=== PATIENT | female | born 1980 | race Caucasian/White ===

== ENCOUNTER → 2018-03-31 | Outpatient (CLI) | payer BC ==
[2018-03-31 15:56] LABS: Basophils % (A) 0 %; Eosinophils # (A) 0.1 k/uL (0-0.7); Eosinophils % (A) 1 %; HCT 42.7 % (34.0-46.0); Lymphocytes # (A) 2.1 k/uL (1.0-4.8); Lymphocytes % (A) 28 %; MCH 30.6 pg (25.0-35.0); MCHC 32.8 g/dL (31.0-37.0); MCV 93.4 fL (80.0-100.0); Mean Platelet Volume 8.7; Monocytes # (A) 0.5 k/uL (0-1.0); Monocytes % (A) 6 %; Neutrophils # (A) 4.6 k/uL (1.3-7.7); Neutrophils % (A) 63 %; Platelet Count 237 k/uL (150-450); RBC 4.57 m/uL (3.80-5.40); RDW 12.3 % (11.5-15.5); WBC 7.4 k/uL (3.8-10.6)
== END | disposition home or self-care (01) ==
LOC: LABPAT 15:15
PROVIDERS: ATTEND Obstetrics & Gynecology
DX: Z01.812 Encounter for preprocedural laboratory examination (principal); N84.0 Polyp of corpus uteri; N93.8 Other specified abnormal uterine and vaginal bleeding
CPT/HCPCS: 36415; 85025

== ENCOUNTER 2018-04-06 09:48 | Day surgery (SDC) | payer BC ==
[~2018-04-06 09:48] MED LIST: DEXAMETHASONE SOD PHOSPHATE 10 MG/ML 1 ML VIAL IV ONE; HYDROmorphone 0.5 MG/0.5 ML SYRINGE IVP PRN; LACTATED RINGERS 1,000 ML IV SCH; ONDANSETRON 4 MG/2 ML VIAL IVP ONE; Pre Op ABX Message 1 EACH MISC MISCELLANE ONE
--- NOTE | 2018-04-06 10:29 | P.HPOB ---
History of Present Illness H&P Date: 04/06/18 Chief Complaint: Irregular periods This is a 37-year-old 3 para 3 woman with worsening history of prolonged and irregular periods. She was found on pelvic ultrasound to have a 1.1 x 0.5 x 0.5 cm endometrial polyp. Normal adnexa. She is scheduled to undergo diagnostic hysteroscopy with D&C and polypectomy. Review of Systems Constitutional: Reports fatigue, Denies chills, Denies fever Cardiovascular: Denies chest pain, Denies shortness of breath Respiratory: Denies cough Gastrointestinal: Denies abdominal pain, Denies BRBPR Genitourinary: Reports abnormal vaginal bleeding Integumentary: Denies rash Neurological: Reports headaches Psychiatric: Denies anxiety, Denies depression Past Medical History Additional Past Medical History / Comment(s): CURRENT: IRREGULAR PERIODS AND LASTING UP TO 3 WEEKS. MIGRAINE History of Any Multi-Drug Resistant Organisms: None Reported Past Surgical History: No Surgical Hx Reported Additional Past Surgical History / Comment(s): HER FIRST SURGERY Past Anesthesia/Blood Transfusion Reactions: Motion Sickness Additional Past Anesthesia/Blood Transfusion Reaction / Comment(s): NEVER HAD ANESTHESIA. Past Psychological History: No Psychological Hx Reported Smoking Status: Never smoker Past Alcohol Use History: Occasional Past Drug Use History: None Reported - Past Family History Mother Family Medical History: No Reported History Medications and Allergies Home Medications Medication Instructions Recorded Confirmed Type ALPRAZolam [Xanax] 0.25 mg PO DAILY PRN 04/02/18 04/02/18 History Ibuprofen 200 - 400 mg PO Q6H PRN 04/02/18 04/02/18 History Rizatriptan Benzoate [Maxalt] 20 mg SL DAILY 04/02/18 04/02/18 History Allergies Allergy/AdvReac Type Severity Reaction Status Date / Time fentanyl AdvReac Nausea & Verified 04/02/18 09:35 Vomiting Exam This is a pleasant female in no apparent distress. HEENT exam is unremarkable with no palpable lymphadenopathy or thyromegaly. Lungs are clear to auscultation bilaterally and the heart is regular rate and rhythm. The abdomen is slim soft and nontender with no rebound no guarding and no flank pain. On the skin is free of any gross lesions or rashes. On previously performed pelvic examination she's demonstrated normal female external genitalia. Uterus is small, freely mobile and in the midline. No adnexal abnormalities palpable. Neurologic exam is grossly intact. Mood and affect are normal. Assessment and Plan (1) Endometrial polyp Current Visit: Yes Status: Acute Code(s): N84.0 - POLYP OF CORPUS UTERI SNOMED Code(s): 54017469 (2) Dysfunctional uterine bleeding Current Visit: Yes Status: Acute Code(s): N93.8 - OTHER SPECIFIED ABNORMAL UTERINE AND VAGINAL BLEEDING SNOMED Code(s): 74467524 Plan: This is a 37-year-old 3 para 3 woman with dysfunctional uterine bleeding , irregular menses and findings of endometrial polyp on pelvic ultrasound. She is scheduled undergo diagnostic hysteroscopy with D&C and polypectomy. Risks of this procedure have been reviewed in detail with the patient in the office setting and include bleeding, infection, transfusion, injury to the cervix or uterus including uterine perforation. The with uterine perforation the possibility of damage to internal on pelvic or abdominal structures. The patient understands these risks and agrees to proceed.
[2018-04-06] MEDS ORDERED: MIDAZOLAM 2 MG/2 ML VIAL IVP ONE (11:17)
[2018-04-06] MEDS ORDERED: fentaNYL (PF) 50 MCG/ML 2 ML AMP ONE (12:53)
[2018-04-06] MEDS ORDERED: MIDAZOLAM 2 MG/2 ML VIAL ONE (12:53)
[2018-04-06] MEDS ORDERED: PROPOFOL 10 MG/ML 20 ML VIAL IV ONE (12:53)
[2018-04-06] MEDS ORDERED: LIDOCAINE 1% INJ 10MG/ML (20 ML MDV) ONE (12:53)
[2018-04-06] MEDS ORDERED: KETOROLAC 30 MG/ML 1 ML VIAL ONE (12:53)
[2018-04-06] MEDS ORDERED: LIDOCAINE 1%-EPI 1:100,000 20 ML VIAL SQ ONE (13:06)
--- NOTE | 2018-04-06 13:18 | P.OP ---
Date of Procedure: 04/06/18 Preoperative Diagnosis: Dysfunctional uterine bleeding Endometrial polyp Postoperative Diagnosis: Same Procedure(s) Performed: Diagnostic hysteroscopy, dilation and curettage, polypectomy Anesthesia: MAC Surgeon: Claritza Mock Estimated Blood Loss (ml): 10 IV fluids (ml): 200 Urine output (ml): 200 Pathology: other (Endometrial curettings and polyp) Condition: stable Disposition: PACU Operative Findings: Fluffy endometrium with intrauterine structures consistent with 2 or 3 endometrial polyps emanating from the posterior fundal region. Description of Procedure: After the patient and her were met in the preoperative holding area and all questions were answered she was taken to the operating room where anesthetic was administered without incident. She was then positioned, prepped and draped in the dorsal lithotomy position. Bladder was drained for approximately 200 mL of clear urine. Speculum was placed in the vagina and the cervix was grasped anteriorly with a single-tooth tenaculum. Paracervical block was placed with lidocaine plus epinephrine. The cervix was sounded to 8.5 cm. Cervix is patulous and there is some descensus. Hegar dilators to used to sequentially dilate the cervix to allow for passage of the diagnostic hysteroscope. The hysteroscope was introduced and the above findings were noted. Hysteroscope was removed and the cervix was further dilated to allow for passage of the small sharp banjo curet. The stone polyp forceps were introduced first and tissue consistent with polyp was removed. Curet was then introduced and the uterine cavity was circumferentially curettaged with a large amount of tissue obtained. Hysteroscope was reintroduced and removal of polyps was confirmed. Pathology specimen was sent. Instrument was removed from the cervix and the it was inspected. Hemostasis was noted. Speculum was removed from the vagina. All counts reported to me as correct. Patient was awoken and transported to recovery area in good condition.
[2018-04-06 13:39] VITALS: TEMP 98.4
[2018-04-06 14:58] VITALS: RESP 18
[2018-04-06 15:53] VITALS: BP 117/67; PULSE 62
== END 2018-04-06 15:54 | disposition home or self-care (01) ==
LOC: OR 09:48
PROVIDERS: ATTEND Obstetrics & Gynecology
DX: N84.0 Polyp of corpus uteri (principal); F39 Unspecified mood [affective] disorder; G43.909 Migraine, unspecified, not intractable, without status migrainosus; Z79.899 Other long term (current) drug therapy
CPT/HCPCS: 81025; 88305; 58558; J2250; J1100; J2405; J2001; J3010; J1885; J2704

== ENCOUNTER → 2018-12-07 | Outpatient (CLI) | payer BC ==
--- NOTE | 2018-12-08 07:54 | MM ---
Reason for exam: screening (asymptomatic). Baseline mammogram. History: Family history of breast cancer in maternal grandmother at age 60. Taking progesterone for 3 months. Physical Findings: Nurse did not find any significant physical abnormalities on exam. MG 3D Screening Mammo W/Cad Bilateral CC and MLO view(s) were taken. The breast tissue is heterogeneously dense. This may lower the sensitivity of mammography. Grouped calcifications approximately 10 o'clock right breast. Anterior upper inner quadrant nodular focal asymmetry left breast measures 4mm. Some accessory breast tissue posterior upper outer quadrant on the left. These results were verbally communicated with the patient and result sheet given to the patient on 12/07/18. ASSESSMENT: Incomplete: need additional imaging evaluation, BI-RAD 0 RECOMMENDATION: Special view mammogram of both breasts. (right mag views, left lateral view)
--- NOTE | 2018-12-08 07:56 | MM ---
Reason for exam: additional evaluation requested from abnormal screening. History: Family history of breast cancer in maternal grandmother at age 60. Taking progesterone for 3 months. Physical Findings: Breast exam preformed at baseline screening. MG 3D Work Up W/Cad SHERIDAN Bilateral LM view(s) were taken. CC with magnification and ML with magnification view(s) were taken of the right breast. The breast tissue is heterogeneously dense. This may lower the sensitivity of mammography. Right upper outer quadrant grouped microcalcifications are indeterminate, biopsy recommended. Left 4mm nodularity at 9-10 o'clock. These results were verbally communicated with the patient and result sheet given to the patient on 12/07/18. ASSESSMENT: Incomplete: need additional imaging evaluation, BI-RAD 0 RECOMMENDATION: Ultrasound of the left breast.
--- NOTE | 2018-12-08 07:59 | USB ---
Reason for exam: additional evaluation requested from abnormal screening. History: Family history of breast cancer in maternal grandmother at age 60. Taking progesterone for 3 months. US Breast Workup Limited LT Left limited breast ultrasound including focal area of concern, retroareolar and axilla demonstrates a 8 x 4 x 5mm cystic cluster at 9 o'clock, corresponds well to the mammographic finding, benign and a 6 x 3 x 5mm cystic lesion at 11 o'clock. These results were verbally communicated with the patient and result sheet given to the patient on 12/07/18. ASSESSMENT: Suspicious, BI-RAD 4 RECOMMENDATION: Surgical consultation. (right breast) Stereotactic core biopsy. (right breast calcifications) Called Dr. Mock with mammographic findings and has scheduled an appointment for the patient for 12/14/18 at 4:[address] Christina. PRELIMINARY REPORT CALLED AND FAXED TO DR. CHRISTINA ON 12/08/18.
== END | disposition home or self-care (01) ==
LOC: RADMAMWWP 13:57
PROVIDERS: ATTEND Obstetrics & Gynecology
DX: Z12.31 Encounter for screening mammogram for malignant neoplasm of breast (principal); R92.8 Other abnormal and inconclusive findings on diagnostic imaging of breast
CPT/HCPCS: 77062; 77063; 77066; 77067

== ENCOUNTER → 2018-12-24 | Day surgery (SDC) | payer BC ==
[2018-12-24 07:20] VITALS: RESP 16
[2018-12-24 09:38] VITALS: BP 115/72; PULSE 77; TEMP 98
--- NOTE | 2018-12-24 09:50 | MM ---
EXAMINATION TYPE: MG stereo VAD BX RT DATE OF EXAM: 12/24/2018 COMPARISON: 12/07/2018 CLINICAL HISTORY: Right breast indeterminate calcifications for which stereotactic guided biopsy was recommended. TECHNIQUE: Stereotactic guided core biopsy of right breast. FINDINGS: The procedure of stereotactic guided core biopsy was explained to the patient. Benefits, alternatives, and risks were discussed. An informed consent was then obtained. Preprocedural timeout was performed. The [facility] pathway for biopsy was chosen. Shortness pathway was lateral medial approach. 10 cc of lidocaine without epinephrine was utilized to anesthetize the skin and subcutaneous tissues. The biopsy needle was advanced to the appropriate depth after localization. Prefire images confirmed appropriate needle placement. 5 cc of lidocaine with epinephrine was utilized to anesthetize the subcutaneous soft tissues at the site of biopsy. A vacuum assisted biopsy gun was used to obtain 11 core samples. The patient tolerated the procedure well without any immediate complication. The patient was kept in the radiology department for short stay after the procedure and then discharged home in stable condition. Targeted calcifications are identified in specimen mammogram. Post biopsy mammogram shows the Trimark biopsy marker to appear in satisfactory position relative to the targeted area of concern on the preprocedure images. IMPRESSION: SUCCESSFUL, UNCOMPLICATED STEREOTACTIC GUIDED CORE BIOPSY OF THE 5 MM GROUP OF CALCIFICATIONS IN THE RIGHT BREAST, FULL PATHOLOGY RESULTS TO FOLLOW. Pathology Results: Benign RIGHT BREAST, STEREOTATIC CORE BIOPSY: Fibroadenoma. Background fibrocystic changes with scattered microcalcifications. Recommendation Follow up mammogram of the right breast in 6 months. BRIAN
== END | disposition home or self-care (01) ==
LOC: RADMAMWWP 06:57
PROVIDERS: ATTEND Student in an Organized Health Care Education/Training Program
DX: D24.1 Benign neoplasm of right breast (principal)
CPT/HCPCS: 88305

== ENCOUNTER → 2019-10-27 | Outpatient (CLI) | payer BC ==
--- NOTE | 2019-10-27 15:04 | MM ---
Reason for exam: follow-up at short interval from prior study. Last mammogram was performed 11 months ago. History: Family history of breast cancer in maternal grandmother at age 60. Benign MG stereo VAD BX RT of the right breast, December 24, 2018. Took hormonal contraceptives for 15 years. Taking progesterone for 1 year. Physical Findings: Nurse did not find any significant physical abnormalities on exam. MG 3D Diag Mammo W/Cad RT CC and MLO view(s) were taken of the right breast. Prior study comparison: December 07, 2018, bilateral MG 3d work up w/cad SHERIDAN. December 07, 2018, bilateral MG 3d screening mammo w/cad. The breast tissue is extremely dense which could obscure a lesion on mammography. Focal asymmetry inferior right MLO view. These results were verbally communicated with the patient and result sheet given to the patient on 10/27/19. ASSESSMENT: Probably benign, BI-RAD 3 RECOMMENDATION: Return to routine screening mammogram schedule for both breasts. Back on schedule for November 2019.
== END | disposition home or self-care (01) ==
LOC: RADMAMWWP 14:12
PROVIDERS: ATTEND Student in an Organized Health Care Education/Training Program
DX: R92.8 Other abnormal and inconclusive findings on diagnostic imaging of breast (principal)
CPT/HCPCS: 77061; 77065

== ENCOUNTER → 2020-04-21 | Outpatient (CLI) | payer BC ==
--- NOTE | 2020-04-25 08:32 | MM ---
Reason for exam: screening (asymptomatic). Last mammogram was performed 6 months ago. History: Family history of breast cancer in maternal grandmother at age 60. Benign MG stereo VAD BX RT of the right breast, December 24, 2018. Took hormonal contraceptives for 15 years. Taking progesterone for 1 year. Physical Findings: A clinical breast exam by your physician is recommended on an annual basis and results should be correlated with mammographic findings. MG 3D Screening Mammo W/Cad Bilateral CC and MLO view(s) were taken. Prior study comparison: October 27, 2019, right breast MG 3d diag mammo w/cad RT. December 07, 2018, bilateral MG 3d work up w/cad SHERIDAN. The breast tissue is heterogeneously dense. This may lower the sensitivity of mammography. No significant changes when compared with prior studies. ASSESSMENT: Benign, BI-RAD 2 RECOMMENDATION: Routine screening mammogram of both breasts in 1 year.
== END | disposition home or self-care (01) ==
LOC: RADMAMWWP 11:09
PROVIDERS: ATTEND Student in an Organized Health Care Education/Training Program
DX: Z12.31 Encounter for screening mammogram for malignant neoplasm of breast (principal)
CPT/HCPCS: 77063; 77067

== ENCOUNTER → 2021-09-21 | Outpatient (CLI) | payer BC ==
--- NOTE | 2021-09-24 12:27 | MM ---
Reason for exam: screening (asymptomatic). Last mammogram was performed 1 year and 5 months ago. History: Family history of breast cancer in mother at age 66 and breast cancer in maternal grandmother at age 60. Benign MG stereo VAD BX RT of the right breast, December 24, 2018. Took hormonal contraceptives for 15 years. Taking progesterone for 1 year. Physical Findings: A clinical breast exam by your physician is recommended on an annual basis and results should be correlated with mammographic findings. MG 3D Screening Mammo W/Cad Bilateral CC and MLO view(s) were taken. Prior study comparison: April 21, 2020, bilateral MG 3d screening mammo w/cad. October 27, 2019, right breast MG 3d diag mammo w/cad RT. The breast tissue is heterogeneously dense. This may lower the sensitivity of mammography. There are benign appearing round calcifications bilaterally. Previous mammotome biopsy in the right breast. There is no discrete abnormality. ASSESSMENT: Benign, BI-RAD 2 RECOMMENDATION: Routine screening mammogram of both breasts in 1 year.
== END | disposition home or self-care (01) ==
LOC: RADMAMWWP 13:08
PROVIDERS: ATTEND Student in an Organized Health Care Education/Training Program
DX: Z12.31 Encounter for screening mammogram for malignant neoplasm of breast (principal); Z80.3 Family history of malignant neoplasm of breast
CPT/HCPCS: 77063; 77067

== ENCOUNTER → 2022-11-14 | Outpatient (CLI) | payer BC ==
--- NOTE | 2022-11-15 09:44 | MM ---
Reason for Exam: Screening (asymptomatic). Last mammogram was performed 1 year(s) and 1 month(s) ago. Patient History: Menarche at age 12. First Full-Term at age 24. Patient has history of breast feeding. Patient used Progesterone for 1 year. Patient used Hormonal Contraceptives for 15 years. 12/24/2018, Benign Core Biopsy on the right side. Maternal grandmother had breast cancer, age 60. Mother had breast cancer, age 66. Last menstrual period: 11/13/2022 Risk Values: Chelsy 5 year model risk: 2.2%. NCI Lifetime model risk: 19.9%. Prior Study Comparison: 10/27/2019 Right Diagnostic Mammogram, [facility]. 04/21/2020 Bilateral Screening Mammogram, [facility]. 09/21/2021 Bilateral Screening Mammogram, [facility]. Tissue Density: The breast tissue is extremely dense which could obscure a lesion on mammography. Findings: Analyzed By CAD. Pattern appears symmetrical and stable. 8 core marker is within right breast. Couple of rounded densities are in the outer right breast on craniocaudal projection. These are approximately 0.5 cm in size located 7 cm from nipple lower-outer quadrant. Additional workup with ultrasound is recommended. Overall Assessment: Incomplete: need additional imaging evaluation, BI-RAD 0 Management: Diagnostic Mammogram of the right breast. A negative mammogram report should not preclude additional follow up of suspicious palpable abnormalities. Patient should continue monthly self breast exam. A clinical breast exam by your physician is recommended on an annual basis and results should be correlated with mammographic findings. Electronically signed and approved by: Daren Zavala D.O. Radiologis
== END | disposition home or self-care (01) ==
LOC: RADMAMWWP 16:23
PROVIDERS: ATTEND Obstetrics & Gynecology
DX: Z12.31 Encounter for screening mammogram for malignant neoplasm of breast (principal); Z80.3 Family history of malignant neoplasm of breast; Z98.890 Other specified postprocedural states
CPT/HCPCS: 77063; 77067

== ENCOUNTER → 2022-11-21 | Outpatient (CLI) | payer BC ==
--- NOTE | 2022-11-21 15:28 | MM ---
Reason for Exam: Additional evaluation requested from abnormal screening. Last screening mammogram was performed less than 1 month ago. Patient History: Menarche at age 12. First Full-Term at age 24. Patient has history of breast feeding. Patient used Progesterone for 1 year. Patient used Hormonal Contraceptives for 15 years. 12/24/2018, Benign Core Biopsy on the right side. Maternal grandmother had breast cancer, age 60. Mother had breast cancer, age 66. Last menstrual period: 11/18/2022 Risk Values: Chelsy 5 year model risk: 2.2%. NCI Lifetime model risk: 19.9%. Prior Study Comparison: 04/21/2020 Bilateral Screening Mammogram, [facility]. 09/21/2021 Bilateral Screening Mammogram, [facility]. 11/14/2022 Bilateral MG 3D screening mammo w/cad, [facility]. Tissue Density: Right: The breast tissue is heterogeneously dense. This may lower the sensitivity of mammography. Findings: Analyzed By CAD. Area persists measuring 10 mm 6.5 cm from nipple in the upper outer quadrant. Depth. Overall Assessment: Incomplete: need additional imaging evaluation, BI-RAD 0 Management: Diagnostic Breast Ultrasound of the right breast. For complete evaluation dedicated ultrasound of the right upper outer quadrant approximately 6.5 cm from nipple is recommended. A clinical breast exam by your physician is recommended on an annual basis and results should be correlated with mammographic findings. This exam should not preclude additional follow-up of suspicious palpable abnormalities. Results were given to the patient verbally at the time of exam. Electronically signed and approved by: Jann Johnson DO
--- NOTE | 2022-11-21 15:52 | USB ---
Reason for Exam: Additional evaluation requested from abnormal screening. Patient History: Menarche at age 12. First Full-Term at age 24. Patient has history of breast feeding. Patient used Progesterone for 1 year. Patient used Hormonal Contraceptives for 15 years. 12/24/2018, Benign Core Biopsy on the right side. Maternal grandmother had breast cancer, age 60. Mother had breast cancer, age 66. Risk Values: Chelsy 5 year model risk: 2.2%. NCI Lifetime model risk: 19.9%. Technique: Method: Targeted. Prior Study Comparison: 04/21/2020 Bilateral Screening Mammogram, [facility]. 09/21/2021 Bilateral Screening Mammogram, [facility]. 11/14/2022 Bilateral MG 3D screening mammo w/cad, [facility]. Findings: The upper outer quadrant of the right breast, the axilla of the right breast and the retroareolar of the right breast were scanned. Targeted ultrasound near 9:00 position 7 cm distance from nipple shows an oval elongated avascular structure or hypoechoic to anechoic area without posterior acoustic features. It measures roughly 10 to 11 mm long axis by 3 mm and runs parallel to the skin line. No additional suspicious lesions are seen. Area of uncertain etiology, dilated duct would be considered closer to the nipple. Mammogram views suggest prominent lymph node. Overall Assessment: Probably benign, BI-RAD 3 Management: Diagnostic Mammogram of the right breast in 6 months. Diagnostic Breast Ultrasound of the right breast in 6 months. A clinical breast exam by your physician is recommended on an annual basis and results should be correlated with mammographic findings. This exam should not preclude additional follow-up of suspicious palpable abnormalities. Results were given to the patient verbally at the time of exam. Electronically signed and approved by: Memo Nieves M.D.
== END | disposition home or self-care (01) ==
LOC: RADMAMWWP 14:52
PROVIDERS: ATTEND Obstetrics & Gynecology
DX: R92.8 Other abnormal and inconclusive findings on diagnostic imaging of breast (principal); Z80.3 Family history of malignant neoplasm of breast
CPT/HCPCS: 77061; 77065

== ENCOUNTER → 2023-05-14 | Outpatient (CLI) | payer BC ==
--- NOTE | 2023-05-14 09:17 | USB ---
Reason for Exam: Follow-up at short interval from prior study. Patient History: Menarche at age 12. First Full-Term at age 24. Patient has history of breast feeding. Patient used Progesterone for 1 year. Patient used Hormonal Contraceptives for 15 years. 12/24/2018, Benign Core Biopsy on the right side. Maternal grandmother had breast cancer, age 60. Mother had breast cancer, age 66. Risk Values: Chelsy 5 year model risk: 2.2%. NCI Lifetime model risk: 19.9%. Technique: Method: Targeted. Prior Study Comparison: 09/21/2021 Bilateral Screening Mammogram, [facility]. 11/14/2022 Bilateral MG 3D screening mammo w/cad, [facility]. 11/21/2022 Right MG 3D work up w/cad RT, [facility]. Findings: The upper outer quadrant of the right breast, the axilla of the right breast and the retroareolar of the right breast were scanned. Imaged: Ultrasound imaging of: All 4 quadrants, the retroareolar region and axilla. Lesion at 7:00 10 cm from nipple with posterior acoustic enhancement likely representing cysts versus dilated duct appears slightly smaller, previously 10 x 3 x 4 mm. 10:00 2 cm nipple cyst measuring up to 8 mm. This is new from prior. Overall Assessment: Probably benign, BI-RAD 3 Management: Diagnostic Breast Ultrasound of the right breast in 6 months. A clinical breast exam by your physician is recommended on an annual basis and results should be correlated with mammographic findings. This exam should not preclude additional follow-up of suspicious palpable abnormalities. Results were given to the patient verbally at the time of exam. Electronically signed and approved by: Jann Johnson DO
--- NOTE | 2023-05-14 09:17 | MM ---
Reason for Exam: Follow-up at short interval from prior study. Last screening mammogram was performed 6 month(s) ago. Patient History: Menarche at age 12. First Full-Term at age 24. Patient has history of breast feeding. Patient used Progesterone for 1 year. Patient used Hormonal Contraceptives for 15 years. 12/24/2018, Benign Core Biopsy on the right side. Maternal grandmother had breast cancer, age 60. Mother had breast cancer, age 66. Risk Values: Chelsy 5 year model risk: 2.2%. NCI Lifetime model risk: 19.9%. Prior Study Comparison: 09/21/2021 Bilateral Screening Mammogram, [facility]. 11/14/2022 Bilateral MG 3D screening mammo w/cad, [facility]. 11/21/2022 Right MG 3D work up w/cad RT, [facility]. Tissue Density: Right: The breast tissue is heterogeneously dense. This may lower the sensitivity of mammography. Findings: Analyzed By CAD. Persistent tubular cystlike structure in the right breast lateral aspect as seen on prior. No new masses or calcification. Overall Assessment: Incomplete: need additional imaging evaluation, BI-RAD 0 Management: Diagnostic Breast Ultrasound of the right breast. Results were given to the patient verbally at the time of exam. Patient should continue monthly self-breast exams. A clinical breast exam by your physician is recommended on an annual basis. This exam should not preclude additional follow-up of suspicious palpable abnormalities. Note on Chelsy scores and lifetime risk: 1. A Chelsy score greater than 3% is considered moderate risk. If this is the case, consider specialist referral to assess eligibility for a risk reducing agent. 2. If overall lifetime risk for the development of breast cancer is 20% or higher, the patient may qualify for future screening with alternating mammogram and breast MRI. Electronically signed and approved by: Jann Johnson DO
== END | disposition home or self-care (01) ==
LOC: RADMAMWWP 08:11
PROVIDERS: ATTEND Obstetrics & Gynecology
DX: R92.8 Other abnormal and inconclusive findings on diagnostic imaging of breast (principal); Z80.3 Family history of malignant neoplasm of breast
CPT/HCPCS: 77061; 77065

== ENCOUNTER → 2024-03-24 | Outpatient (CLI) | payer BC ==
--- NOTE | 2024-03-24 09:27 | MM ---
Reason for Exam: Clinical finding. Last mammogram was performed 1 year(s) and 5 month(s) ago. Patient History: Menarche at age 12. First Full-Term at age 24. Patient has history of breast feeding. Patient used Progesterone for 1 year. Patient used Hormonal Contraceptives for 15 years. 12/24/2018, Benign Core Biopsy on the right side. Maternal grandmother had breast cancer, age 60. Mother had breast cancer, age 66. Risk Values: Chelsy 5 year model risk: 2.3%. NCI Lifetime model risk: 19.7%. Prior Study Comparison: 12/07/2018 Bilateral Screening Mammogram, [facility]. 12/07/2018 Bilateral Diagnostic Mammogram, [facility]. 12/07/2018 Left Diagnostic Ultrasound, [facility]. 10/27/2019 Right Diagnostic Mammogram, [facility]. 04/21/2020 Bilateral Screening Mammogram, [facility]. 09/21/2021 Bilateral Screening Mammogram, [facility]. 11/14/2022 Bilateral MG 3D screening mammo w/cad, [facility]. 11/21/2022 Right US breast workup limited RT, [facility]. 11/21/2022 Right MG 3D work up w/cad RT, [facility]. 05/14/2023 Right MG 3D diag mammo w/cad RT, [facility]. 05/14/2023 Right US breast limited RT, [facility]. Tissue Density: The breasts are heterogeneously dense, which may obscure small masses. Findings: Analyzed By CAD. 1.3 x 0.5 cm circumscribed oval nodule, suspected low axillary tail lymph node 10:00 position far peripherally in the right breast appears to have increased from 2021 where it measured 6 x 3 mm. Other areas of bilaterally symmetric density are unchanged or show no persisting abnormality on 3-D images. Microclip right breast from prior biopsy. Overall Assessment: Incomplete: need additional imaging evaluation, BI-RAD 0 Management: Diagnostic Breast Ultrasound of the right breast. Electronically signed and approved by: Paz Ring M.D. Radiologist
--- NOTE | 2024-03-24 09:51 | USB ---
Reason for Exam: Additional evaluation requested from prior study. Patient History: Menarche at age 12. First Full-Term at age 24. Patient has history of breast feeding. Patient used Progesterone for 1 year. Patient used Hormonal Contraceptives for 15 years. 12/24/2018, Benign Core Biopsy on the right side. Maternal grandmother had breast cancer, age 60. Mother had breast cancer, age 66. Risk Values: Chelsy 5 year model risk: 2.3%. NCI Lifetime model risk: 19.7%. Technique: Method: Targeted. Prior Study Comparison: 11/14/2022 Bilateral MG 3D screening mammo w/cad, [facility]. 11/21/2022 Right MG 3D work up w/cad RT, [facility]. 05/14/2023 Right MG 3D diag mammo w/cad RT, [facility]. Findings: The lateral section of the breast of the right breast, the axilla of the right breast and the retroareolar of the right breast were scanned. Real-time ultrasound lateral aspect right breast 6:00 to 12:00 including scanning of the subareolar region and axilla. * Scattered dense tissues are present. * At the 10:00 position, 5 cm from the nipple, there is redemonstrated 8 x 8 x 3 mm benign cyst. * The other cysts previously seen at the 9:00 position is no longer seen. * No other solid or cystic lesion or axillary lymphadenopathy. Overall Assessment: Probably benign, BI-RAD 3 Management: Diagnostic Mammogram of the right breast in 6 months. A clinical breast exam by your physician is recommended on an annual basis and results should be correlated with mammographic findings. This exam should not preclude additional follow-up of suspicious palpable abnormalities. Results were given to the patient verbally at the time of exam. Electronically signed and approved by: Paz Ring M.D. Radiologist
== END | disposition home or self-care (01) ==
LOC: RADMAMWWP 08:51
PROVIDERS: ATTEND Obstetrics & Gynecology
DX: R92.8 Other abnormal and inconclusive findings on diagnostic imaging of breast (principal); R92.333 Mammographic heterogeneous density, bilateral breasts; Z80.3 Family history of malignant neoplasm of breast
CPT/HCPCS: 77062; 77066